=== PATIENT | male | born 1990 | race Caucasian/White ===

== ENCOUNTER 2020-08-27 11:17 | Emergency (ER) | payer OTHER ==
[~2020-08-27] VITALS: Ht 175.3 cm; Wt 93.0 kg
--- NOTE | 2020-08-27 12:32 | NUR ---
DR SNIDER AT BEDSIDE FOR EVAL.
[2020-08-27 13:04] VITALS: BP 145/99
--- NOTE | 2020-08-27 13:04 | NUR ---
MEDICALLY CLEARED. DISCHARGED TO PD IN STABLE CONDITION.
== END 2020-08-27 13:05 ==
LOC: ER 11:20
DX: S60.511A Abrasion of right hand, initial encounter (principal); L03.113 Cellulitis of right upper limb; W22.8XXA Striking against or struck by other objects, initial encounter; Y93.89 Activity, other specified; Y92.89 Other specified places as the place of occurrence of the external cause; Y99.8 Other external cause status
CPT/HCPCS: 73130-TC

== ENCOUNTER 2022-04-12 01:24 | Emergency (ER) | payer OTHER ==
[~2022-04-12] VITALS: Ht 175.3 cm; Wt 95.3 kg
--- NOTE | 2022-04-12 01:28 | NUR ---
EAN 40 FROM HOME FOR C/O SI. WILLING TO GO [facility]OL[facility] TO [facility] HOWEVER [employer] WILL PLACE THE PATIET ON HOLD. PATIENT ALERT AND ORIENTED X3. AMBULATORY WITH NON LABORED BREATHING IN BED 14 ON MONITOR AND POX.
--- NOTE | 2022-04-12 01:30 | NUR ---
PATIENT WANDED BY SECURITY, TWO RN AT BEDSIDE. PATIENT BELONGINGS TAKEN AND PLACED INSIDE PATIENT LOCKER. PATIENT PLACED IN HOSPITAL GOWN. SITTER AT BEDSIDE, WILL CONTINUE TO MONITOR.
--- NOTE | 2022-04-12 01:42 | NUR ---
COVID SWAB DONE AND SENTT O LAB
--- NOTE | 2022-04-12 01:42 | NUR ---
URINE COLLECTED AND SENT TO LAB
[2022-04-12 01:54] LABS: BASOPHILS % (AUTO) 0.3 % (0.0-2.0); EOSINOPHILS % (AUTO) 0.2 % (0.0-6.0); HEMATOCRIT 50 % (39-51); HEMOGLOBIN 17.1 g/dL (13.5-17.5); LYMPHOCYTES # (AUTO) 1.6 K/uL (0.8-4.8); LYMPHOCYTES % (AUTO) 20.4 % (20.0-44.0); MEAN CORPUSCULAR HGB CONC 34 g/dl (31.0-36.0); MEAN CORPUSCULAR VOLUME 95 fL (80-96); MONOCYTES # (AUTO) 0.6 K/uL (0.1-1.30); MONOCYTES % (AUTO) 7.9 % (2.0-12.0); NEUTROPHILS # (AUTO) 5.5 K/uL (1.8-8.9); NEUTROPHILS % (AUTO) 71.2 % (43.0-81.0); PLATELET COUNT (AUTO) 215 K/uL (150-450); RED BLOOD CELL COUNT(AUTO) 5.24 MIL/uL (4.5-6.0); WHITE BLOOD COUNT (AUTO) 7.7 K/uL (4.3-11.0)
[2022-04-12 02:00] LABS: BILIRUBIN,URINE SMALL (NEGATIVE); COLOR,URINE DARK YELLOW (YELLOW); LEUKOCYTE ESTERASE ,URINE NEGATIVE (NEGATIVE); NITRITE, URINE NEGATIVE (NEGATIVE); PH,URINE 5.5 (5.0-8.0); PROTEIN,URINE TRACE mg/dl (NEGATIVE); UGLUCOSE NEGATIVE (NEGATIVE); UROBILINOGEN,URINE 0.2 EU/dL (0.2)
--- NOTE | 2022-04-12 02:10 | NUR ---
PATIENT BEING AGGRESSIVE TOWARDS STAFF THROWING MEDICAL EQUIPMENT. PATIENT PLACED ON MEDICAL RESTRAINTS
[2022-04-12 02:14] LABS: BACTERIA,URINE Rare /HPF (None Seen); RBC,URINE 0-2 /HPF (0-2); SQUAMOUS EPITHELIAL CELL,UR Moderate /HPF (None Seen)
[2022-04-12 02:15] LABS: COARSE GRANULAR CASTS,URINE Few /LPF (None Seen); HYALINE CASTS, URINE Rare /LPF (None Seen); MUCUS,URINE Many /LPF (None Seen)
[2022-04-12 02:20] LABS: CALCIUM, SERUM 8.4 mg/dL (8.5-10.1); CREATININE 0.8 mg/dL (0.6-1.3); POTASSIUM 3.4 mmol/L (3.5-5.1)
[2022-04-12] MEDS ORDERED: LORAZEPAM 1 MG TABLET ONE (02:21)
[2022-04-12] MEDS ORDERED: diphenhydrAMINE HCL 50 MG/ML VIAL ONE (02:24)
[2022-04-12] MEDS ORDERED: HALOPERIDOL LACTATE INJ 5 MG/ML VIAL ONE (02:24)
[2022-04-12] MEDS ORDERED: LORAZEPAM INJ 2 MG/ML VIAL ONE (02:25)
[2022-04-12 02:26] LABS: BILIRUBIN,DIRECT 0.5 mg/dL (0.0-0.2); BILIRUBIN,TOTAL 1.1 mg/dL (0.2-1.0); TOTAL PROTEIN, SERUM 7.7 g/dL (6.4-8.2)
[2022-04-12] MEDS ORDERED: LORAZEPAM 1 MG TABLET PO ONE (02:30)
--- NOTE | 2022-04-12 02:35 | NUR ---
PT REFUSED ATIVAN MD TESSA MADE AWARE. NEW ORDERS WERE PUT IN PLACE. ATIVAN WASTED.
--- NOTE | 2022-04-12 02:36 | NUR ---
ATIVAN 2MG PO WASTED WITH VIKRAM COMBS
[2022-04-12] MEDS ORDERED: HALOPERIDOL LACTATE INJ 5 MG/ML VIAL IM ONE (03:00)
[2022-04-12] MEDS ORDERED: diphenhydrAMINE HCL 50 MG/ML VIAL IM ONE (03:00)
[2022-04-12] MEDS ORDERED: LORAZEPAM INJ 2 MG/ML VIAL IV ONE (03:00)
--- NOTE | 2022-04-12 03:08 | NUR ---
PATIENT AGITATED, YELLING AT STAFF MEMEBRS, TRYING TO REMOVE MEDICAL RESTRAINTS.
--- NOTE | 2022-04-12 07:30 | NUR ---
PT SEEN BY RELATIONSHIP MANAGER. DOES NOT MEET HOLD CRITERIA. MD AWARE. RESTRAINTS REMOVED; CIRCULATION CHECKED, NO ADVERSE CHANGE NOTED.
--- NOTE | 2022-04-12 08:00 | NUR ---
PT A/O, VERBALLY RESPONSIVE. DENIES SI/HI AT THIS TIME. PT AMBULATORY W/ STEADY GAIT. DISCHARGE INSTRUCTIONS GIVEN TO PT AND VERBALIZED UNDERSTANDING.
[2022-04-12 09:20] VITALS: BP 134/78
--- NOTE | 2022-04-19 02:35 | NUR ---
Note nathan in ED - 04/19/22 at 0609 by YAMILET PT REFUSED DENILSON ZARATE MD MADE AWARE. NEW ORDERS WERE PUT IN PLACE. DENILSON WASTED.
--- NOTE | 2022-04-19 02:36 | NUR ---
Fernando evans in [facility] - 04/19/22 at 0612 by REJI ATIVAN 2MG PO WASTED WITH VIKRAM COMBS
== END 2022-04-12 09:20 | disposition home or self-care (01) ==
LOC: EDBD 01:26 → ER 01:26
DX: R45.851 Suicidal ideations (principal); R45.1 Restlessness and agitation; F10.129 Alcohol abuse with intoxication, unspecified; Y90.6 Blood alcohol level of 120-199 mg/100 ml; Z20.822 Contact with and (suspected) exposure to COVID-19
CPT/HCPCS: 99291; 96372 ×2; 96374; 85025; 80048; 87086; 80076; 81001; 36415; 87426; 80143; 80320; 80307; J2060; J1200; J1630; C9803; G0480